=== PATIENT | female | born 1960 | race Caucasian/White ===

== ENCOUNTER 2017-05-18 09:24 | Emergency (ER) | payer OTHER ==
[2017-05-18 09:30] VITALS: BP 151/76
--- NOTE | 2017-05-18 11:15 | ED Physician Documentation ---
History of Present Illness - Stated complaint Stated Complaint: FEVER/COUGH - Chief complaint Chief Complaint: Resp - Additonal information Additional information: hx from pt 56 female 3 days of fever myalgias congestion and cough no flu shot this year Review of Systems Constitutional: reports: Fever, Chills, Myalgias Ears: reports: Ear pain Nose: reports: Congestion Throat: reports: Sore throat Cardiac: denies: Chest pain / pressure Respiratory: reports: Cough. denies: Dyspnea GI: denies: Nausea, Vomiting, Diarrhea Endocrine: denies: Easy bruising / bleeding Immunocompromised: denies: Immunocompromised PD PAST MEDICAL HISTORY - Past Medical History Past Medical History: No - Past Surgical History Past Surgical History: No - Present Medications Home Medications: Ambulatory Orders Medication Instructions Recorded Confirmed Benzonatate [Tessalon] 100 mg PO TID PRN #20 capsule 05/18/17 Fluticasone [Flonase] 1 sprays JANIS BID PRN #1 bottle 05/18/17 guaiFENesin/DEXTROMETHORPHAN 10 ml PO Q6H PRN #120 ml 05/18/17 [Robitussin Dm] - Allergies Allergies/Adverse Reactions: Allergies Allergy/AdvReac Type Severity Reaction Status Date / Time Sulfa (Sulfonamide Allergy Unknown Verified 05/18/17 09:30 Antibiotics) - Social History Does the pt smoke?: No Smoking Status: Never smoker Does the pt drink ETOH?: No Does the pt have substance abuse?: No - Immunizations Immunizations are current?: Yes PD ED PE NORMAL - Vitals Vital signs reviewed: Yes - General General: Alert and oriented X 3 - HEENT HEENT: PERRL, Moist mucous membranes. No: Ears normal (retracted) - Neck Neck: Supple, no meningeal sign - Cardiac Cardiac: RRR - Respiratory Respiratory: No respiratory distress, Clear bilaterally - Abdomen Abdomen: Soft, Non tender - Extremities Extremities: No edema, No calf tenderness / cord - Neuro Neuro: Alert and oriented X 3 Results - Vitals Vitals: Vital Signs - 24 hr 05/18/17 09:27 Temperature 36.8 C Heart Rate 93 Respiratory 16 Rate Blood Pressure 151/76 H O2 Saturation 96 Oxygen O2 Source Room air - Rads (name of study) CXR Radiology: See rad report ([facility]) PD MEDICAL DECISION MAKING - ED course ED course: sx c/w influenza sx X 3 days and otherwsie healthy so would not rec tamiflu - so did not swab got CXR to rule out pna and it is neg will dc with symptomatic meds Departure - Departure Disposition: 01 Home, Self Care Clinical Impression: Influenza Condition: Good Instructions: ED Flu Follow-Up: Ta Al DO [Primary Care Provider] - Prescriptions: Benzonatate [Tessalon] 100 mg PO TID PRN #20 capsule PRN Reason: to ease cough Fluticasone [Flonase] 1 sprays JANIS BID PRN #1 bottle PRN Reason: allergies guaiFENesin/DEXTROMETHORPHAN [Robitussin Dm] 10 ml PO Q6H PRN #120 ml PRN Reason: Cough Comments: Your xray is fine - no pneumonia I think you have influenza You need to stay home and rest - you should not go to work or to the store because you are contagious It may take up to a week for you to recover. I have prescribed some medications to help you feel better. If you take a turn for the worse, please come back to the ER - sometimes after being sick with influenza, people can develop a secondary infection such as pneumonia Forms: Activity restrictions
--- NOTE | 2017-05-18 11:50 | XRAY Report ---
EXAM: CHEST RADIOGRAPHY EXAM DATE: 05/18/2017 11:18 AM. CLINICAL HISTORY: Fever cough. COMPARISON: None. TECHNIQUE: 2 views. FINDINGS: Lungs/Pleura: No focal opacities evident. No pleural effusion. No pneumothorax. Normal volumes. Mediastinum: Heart and mediastinal contours are unremarkable. IMPRESSION: No evidence of acute thoracic process [facility] Referring Provider Line: [phone] SITE ID: [id number]
== END 2017-05-18 12:37 | disposition home or self-care (01) ==
LOC: ED 09:24
DX: J11.1 Influenza due to unidentified influenza virus with other respiratory manifestations (principal)
CPT/HCPCS: 71046; 99282; 99283